=== PATIENT | female | born 1975 | race Caucasian/White ===

== ENCOUNTER 2019-11-04 09:00 | Observation (INO) | payer BC, OTHER ==
[2019-11-04] MEDS ORDERED: Sodium Chloride 0.9% 10 ML Syringe FLUSH PRN ×3 (09:05→14:58)
[2019-11-04] MEDS ORDERED: HYDROmorphone 0.5 MG/0.5 ML Syringe IVPUSH ONE (09:08)
[2019-11-04] MEDS ORDERED: Iopamidol 612 MG/ML 100 ML Bottle IVPUSH ONE (09:10)
[2019-11-04] MEDS ORDERED: Iopamidol 612 MG/ML 50 ML SDV IVPUSH ONE (09:10)
--- NOTE | 2019-11-04 10:29 | CT ---
CT cervical spine Technique: Multiple axial sections were obtained from above C1 inferiorly to the bottom of T2. Reconstructed sagittal and coronal images were obtained. Comparison: No prior cervical spine imaging. Findings: Vertebral body heights and disc spaces are maintained. Mild scoliosis is noted. Vertebral bodies and posterior arches are intact with no fracture being seen. No bony central or bony neural foraminal stenosis is seen. Mild degenerative change is noted within the lower apophyseal joints. Impression: 1. Scoliosis. Mild degenerative change within the lower apophyseal joints. 2. No acute fracture or abnormal subluxation is seen. Diagnostic code #2 This report was dictated in [place] Standard Time
--- NOTE | 2019-11-04 10:29 | CT ---
CT chest Technique: Multiple axial sections were obtained from above the lung apices inferiorly through the lung bases. Intravenous contrast was utilized. Comparison: No prior chest imaging. Findings: Aorta shows no aneurysm. No mediastinal hematoma is seen. No pericardial thickening is seen. No axillary adenopathy is noted. Lungs are clear with no acute parenchymal change. No pleural effusions or pneumothorax is seen. Bone window settings were reviewed. Plate and screws affix an old clavicle fracture on the right side. Mild thoracic scoliosis is seen. No definite acute osseous finding is appreciated. Impression: 1. Mild scoliosis. 2. Nothing acute is appreciated on CT study of the chest. Diagnostic code #2 CT abdomen and pelvis Technique: Multiple axial sections were obtained from above the dome of the diaphragm inferiorly through the pubic symphysis. Intravenous contrast was utilized. No oral contrast has been given. Comparison: No prior abdominal imaging is available. Artifact noted from the patient's arms being along the side. Liver shows no discrete abnormality. Spleen also shows no discrete abnormality. Adrenal glands show no nodule. Pancreas shows no abnormality. Gallbladder contains no calcified gallstones. Kidneys show symmetric contrast enhancement. Aorta shows no aneurysm. No retroperitoneal adenopathy or mesenteric abnormalities are seen. No pelvic mass or adenopathy is seen. No free fluid or inflammatory change is appreciated. Appendix is partially visualized and felt to be normal. No bowel dilatation is seen. Bone window settings were reviewed which show no acute osseous finding. Impression: 1. Nothing acute is appreciated on CT study of the abdomen and pelvis. Diagnostic code #1 This report was dictated in [place] Standard Time
--- NOTE | 2019-11-04 10:29 | CT ---
Head CT Technique: Multiple axial sections through the brain were obtained. Intravenous contrast was not utilized. Comparison: No prior intracranial imaging is available. Findings: Ventricles along with basal cisterns and sulci over the convexities are within normal limits for the patient's age. No abnormal parenchymal densities are seen. No evidence of intracranial hemorrhage. No midline shift or mass-effect is seen. Paranasal sinuses are clear. No acute calvarial abnormality is appreciated. Impression: 1. Nothing acute is appreciated on noncontrast head CT exam. Diagnostic code #1 This report was dictated in [place] Standard Time
--- NOTE | 2019-11-04 10:29 | CR ---
Left elbow: Four views of the left elbow were obtained. Comparison: No prior left elbow exam. Joint spaces are preserved. No joint effusion is seen. No acute fracture, dislocation or other bony abnormality is seen. Impression: 1. No acute bony abnormality is identified on left elbow study. Diagnostic code #1 This report was dictated in [place] Standard Time
--- NOTE | 2019-11-04 10:29 | CR ---
Left femur: AP and lateral views of the left femur were obtained. Comparison: No prior femur study. No fracture or other bony abnormality is appreciated. Impression: 1. Nothing acute is seen on left femur study. Diagnostic code #1 This report was dictated in [place] Standard Time
[2019-11-04] MEDS ORDERED: HYDROmorphone 0.5 MG/0.5 ML Syringe ONE (11:50)
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
[2019-11-04] MEDS: Acetaminophen 325 MG Tab PO PRN (16:50)
[2019-11-04] MEDS ORDERED: traZODone 50 MG Tab PO SCH (21:00)
[2019-11-04] MEDS: Ibuprofen 800 MG Tab PO PRN (21:01)
[2019-11-04] MEDS ORDERED: TRAZODONE 50 MG PO ONE (21:30)
[2019-11-05] MEDS: Acetaminophen 325 MG Tab PO PRN (02:40)
[2019-11-05] MEDS: Ibuprofen 800 MG Tab PO PRN (07:37)
[2019-11-05] MEDS ORDERED: ESCITALOPRAM 10 MG PO SCH (09:00)
[2019-11-05] MEDS ORDERED: CITALOPRAM 10 MG PO SCH (09:00)
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
[2019-11-05] MEDS ORDERED: TRAZODONE 50 MG PO SCH (21:00)
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
== END 2019-11-05 12:50 | disposition home or self-care (01) ==
LOC: JD.ED 09:00 → JD.MS 14:12
PROVIDERS: ADMIT Surgery; ATTEND Surgery
DX: M54.2 Cervicalgia (principal); M25.522 Pain in left elbow; M25.552 Pain in left hip; M25.562 Pain in left knee; M25.572 Pain in left ankle and joints of left foot; R07.81 Pleurodynia; G44.209 Tension-type headache, unspecified, not intractable; G43.909 Migraine, unspecified, not intractable, without status migrainosus; F41.9 Anxiety disorder, unspecified; F32.9 Major depressive disorder, single episode, unspecified; V53.5XXA Driver of pick-up truck or van injured in collision with car, pick-up truck or van in traffic accident, initial encounter; Z91.040 Latex allergy status; Z88.0 Allergy status to penicillin; Z88.8 Allergy status to other drugs, medicaments and biological substances
CPT/HCPCS: 36415; 70450; 71260; 72125; 73080; 73552; 74177; 80053; 80306; 80320; 81001; 83690; 84703; 85025; 96374; 97110; 97116; 97161; 99285; A9270; G0378; J1170; Q9967; 99284; G0480

== ENCOUNTER 2022-12-09 13:14 | Emergency (ER) | payer BC, MEDICAID, OTHER ==
[2022-12-09] MEDS: Sodium Chloride 0.9% 10 ML Syringe FLUSH PRN ×2 (13:49→17:52)
[2022-12-09] MEDS ORDERED: Sodium Chloride 0.9% 1,000 ML IV ONE (14:06)
[2022-12-09 14:29] LABS: CORONAVIRUS COVID-19 NAA NEGATIVE (NEGATIVE)
[2022-12-09] MEDS ORDERED: Iopamidol 755 Mg/ML 100 ML Bottle IVPUSH ONE (17:49)
[2022-12-09] MEDS ORDERED: Sodium Chloride 0.9% 10 ML SDV FLUSH ONE (17:49)
[2022-12-09] MEDS ORDERED: Sodium Chloride 0.9% 100 ML IV SCH (18:00)
[2022-12-09] MEDS ORDERED: Ketorolac 30 MG/ML SDV IVPUSH ONE (18:23)
[2022-12-10] MEDS ORDERED: Sucralfate Suspension 1 GM/10 ML Cup PO ONE (07:46)
[2022-12-10] MEDS ORDERED: Aspirin 81 MG Tab.EC PO ONE (08:05)
== END 2022-12-10 10:15 | disposition home or self-care (01) ==
LOC: JD.ED 13:14
DX: R29.818 Other symptoms and signs involving the nervous system (principal); Z91.040 Latex allergy status; Z88.0 Allergy status to penicillin; Z88.8 Allergy status to other drugs, medicaments and biological substances; Z87.891 Personal history of nicotine dependence; Z20.822 Contact with and (suspected) exposure to COVID-19
CPT/HCPCS: 0241U; 36415; 70450; 70496; 70498; 70551; 71045; 80053; 80306; 80307; 81001; 82607; 82947; 83735; 83880; 84443; 84484; 85025; 85379; 85610; 85730; 93005; 96361; 96374; 99285; A9270; J1885; J3490; J7030; Q9967

== ENCOUNTER 2023-03-09 20:36 | Emergency (ER) | payer OTHER ==
[2023-03-09] MEDS ORDERED: diphenhydrAMINE 50 MG/ML SDV IVPUSH ONE (20:58)
[2023-03-09] MEDS ORDERED: Famotidine 20 MG/2 ML SDV IVPUSH ONE (20:58)
[2023-03-09] MEDS ORDERED: methylPREDNISolone Sodium Succinate 40 MG/1 ML SDV IVPUSH ONE (20:58)
== END 2023-03-09 22:33 | disposition home or self-care (01) ==
LOC: JD.ED 20:36
DX: T78.40XA Allergy, unspecified, initial encounter (principal); Z91.040 Latex allergy status; Z88.0 Allergy status to penicillin; Z88.8 Allergy status to other drugs, medicaments and biological substances
CPT/HCPCS: 96374; 96375; 99283; J1200; J2920; J3490; 99284

== ENCOUNTER 2024-02-23 08:39 | Day surgery (SDC) | payer OTHER ==
[~2024-02-23 08:39] MED LIST: Lidocaine 1% 5 ML VIAL ONE; Midazolam 1 MG/ML 2 ML SDV ONE; Ondansetron 4 MG/2 ML SDV ONE; Propofol 200 MG/20 ML SDV ONE; Rocuronium 50 MG/5 ML Vial ONE; Sodium Chloride 0.9% 10 ML Syringe FLUSH PRN; Sodium Chloride 0.9% 10 ML Syringe FLUSH SCH; Sugammadex Sodium 200 MG/2 ML VIAL IV ONE; ceFAZolin 2 GM Vial ONE; fentaNYL 250 MCG/5 ML SDV ONE
[2024-02-23] MEDS: Lactated Ringers 1,000 ML IV SCH (09:00)
[2024-02-23 09:01] LABS: BASOPHILS PERCENT AUTO 0.7 % (0.0-1.0); EOSINOPHILS ABSOLUTE AUTO 0.1 K/mm3 (0.0-0.4); EOSINOPHILS PERCENT AUTO 1.3 % (0.0-6.0); HEMATOCRIT 43.2 % (37.0-47.0); HEMOGLOBIN 14.3 gm/dl (12.0-16.0); IMMATURE GRAN ABSOLUTE AUTO 0.01 K/mm3 (0.00-0.05); IMMATURE GRAN PERCENT AUTO 0.2 % (0.0-0.4); LYMPHOCYTES ABSOLUTE AUTO 1.2 K/mm3 (1.0-4.8); LYMPHOCYTES PERCENT AUTO 19.1 % (24.0-44.0); MEAN CORPUSCULAR HEMOGLOBIN 29.2 pg (28.0-32.0); MEAN CORPUSCULAR HGB CONC 33.1 g/dl (32.0-36.0); MEAN CORPUSCULAR VOLUME 88.3 fl (83.0-99.0); MEAN PLATELET VOLUME 10.8 fl (9.4-12.3); MONOCYTES ABSOLUTE AUTO 0.5 K/mm3 (0.0-0.8); MONOCYTES PERCENT AUTO 7.9 % (0.0-8.0); NEUTROPHILS ABSOLUTE AUTO 4.3 K/mm3 (1.8-7.7); NEUTROPHILS PERCENT AUTO 70.8 % (41.0-71.0); PLATELET COUNT,PLT 169 K/mm3 (150-400); RED BLOOD CELL COUNT 4.89 M/mm3 (4.10-5.30); WHITE BLOOD CELL COUNT,WBC 6.07 K/mm3 (3.9-11.3)
[2024-02-23 09:34] LABS: A/G RATIO 0.9 (1-2); ALBUMIN 3.4 g/dl (3.4-5.0); ANION GAP 12.9 (5-15); BILIRUBIN TOTAL 0.3 mg/dL (0.2-1.0); CALCIUM 8.8 mg/dL (8.5-10.1); EST CRCL DRUG DOSING (CG) 71.9 mL/min; POTASSIUM,K 3.9 mEq/L (3.5-5.1); PROTEIN TOTAL,TP 7.1 g/dl (6.4-8.2)
[2024-02-23] MEDS ORDERED: Dexamethasone 4 MG/ML 5 ML MDV ONE (09:44)
[2024-02-23] MEDS ORDERED: HYDROmorphone 0.5 MG/0.5 ML Syringe IVPUSH PRN (09:54)
[2024-02-23] MEDS ORDERED: fentaNYL 100 MCG/2 ML SDV IVPUSH PRN (09:54)
[2024-02-23] MEDS ORDERED: HYDROmorphone 0.5 MG/0.5 ML Syringe ONE (09:57)
[2024-02-23] MEDS ORDERED: Lactated Ringers 1,000 ML ONE (10:33)
[2024-02-23] MEDS ORDERED: Neostigmine Methylsulfate 10 MG/10 ML MDV ONE (11:05)
[2024-02-23] MEDS ORDERED: fentaNYL 100 MCG/2 ML SDV ONE (11:07)
[2024-02-23] MEDS: Bupivacaine 0.5% 10 ML SDV ONE (11:07)
[2024-02-23] MEDS ORDERED: Ketorolac 30 MG/ML SDV ONE (11:32)
[2024-02-23] MEDS: EPINEPHrine 1 MG/ML SDV ONE (11:45)
[2024-02-23] MEDS: Bupivacaine 0.25% 10 ML SDV ONE (11:45)
[2024-02-23] MEDS: Ondansetron 4 MG/2 ML SDV IVPUSH PRN (16:03)
[2024-02-23] MEDS: Acetaminophen/oxyCODONE 325-5 MG Tab PO PRN (17:42)
== END 2024-02-23 18:58 | disposition home or self-care (01) ==
LOC: JD.SDS 08:39
PROVIDERS: ATTEND Obstetrics & Gynecology
DX: N87.9 Dysplasia of cervix uteri, unspecified (principal); N72 Inflammatory disease of cervix uteri; F41.9 Anxiety disorder, unspecified; F32.A Depression, unspecified; Z87.891 Personal history of nicotine dependence; Z79.899 Other long term (current) drug therapy; Z88.0 Allergy status to penicillin; Z91.040 Latex allergy status; Z88.8 Allergy status to other drugs, medicaments and biological substances
CPT/HCPCS: 00944; 36415; 80053; 85025; 86850; 86900; 86901; A9270-GY; J0171; J0665; J0690; J1100; J1170; J1596; J1885; J2250; J2405; J2704; J2710; J3010; J3490; J7120